=== PATIENT | male | born 1930 | race African-American/Black ===

== ENCOUNTER 2018-05-02 20:16 | Inpatient (IN) | payer OTHER ==
[~2018-05-02] VITALS: Ht 185.4 cm; Wt 138.1 kg
--- NOTE | ~2018-05-02 | EKG ---
[place] [address] [facility] [place] [address] ELECTROCARDIOGRAM REPORT Name: ALEXANDER WHITMAN Room #: 360-P ADM IN M.R.#: [id number] Admission: 05/02/18 Attend Phys: Radha Lacy MD Discharge: Date of : 32 Report #: [id number] THIS REPORT FOR: //name// [facility] ED Test Date: 2018-05-02 Test Time: 20:29:27 Pat Name: ALEXANDER WHITMAN Department: Room: Gender: M Cook Jelly: LOI : 1930 Requested By: Janice Estrada Order Number: [id number] MD: Jori Garcia Measurements Intervals [place] Rate: 75 P: SC: QRS: -40 QRSD: 112 T: 119 QT: 447 QTc: 500 Interpretive Statements Atrial fibrillation Ventricular premature complex Abnormal R-wave progression, early transition Nonspecific T abnrm Borderline prolonged QT interval No previous ECG available for comparison Electronically Signed On 05-03-2018 8:12:46 CDT by Jori Garcia [email or web address] <ELECTRONICALLY SIGNED> By: Jori Garcia MD, [facility] 05/03/18 0812 28 28 Jori Garcia MD, [facility] /EPI
--- NOTE | ~2018-05-02 | HC ---
[facility] [address] [place] [address] CONSULTATION Name: ALEXANDER WHITMAN Room #: 360-P ADM IN M.R.#: [id number] Admission: 05/02/18 Attend Phys: Radha Lacy MD Discharge: Date of : 32 Report #: [id number] THIS REPORT FOR: //name// CC: Radha Lacy REASON FOR CONSULTATION: Hypercalcemia. REASON FOR PRESENTATION: Abnormal lab. HISTORY OF PRESENT ILLNESS: An 88-year-old with past medical history of hypertension, AFib, status post pacemaker insertion. He was in [facility] after a fracture of C2. This was nondisplaced fracture, he was treated accordingly. He was then transferred to the [facility]. There, he had some issues with subjective high temperature and episodes of emesis. Labs were obtained on the patient and this revealed hypercalcemia and leukocytosis. He was transferred to further evaluate of those things. It is mentioned in one of his diagnoses that he has history of hyperparathyroidism and was maintained on Sensipar for unclear reasons to me. Calcium on presentation was elevated at 12.5, The patient currently is not able to provide me with the details of his hospital stay at [facility]. It does look like that he carries a diagnosis of chronic kidney disease. He has issues with fluid overload and diastolic heart failure. He also has an indwelling G[place] catheter because of prostate related issues as per his . He is not aware of any previous calcium issues as he stated; however, his tells me that this has been worked up extensively at the [facility]. UA was significant for nitrites and some bacteria and white blood cells. Cultures are still pending. When he presented to the emergency room yesterday, white blood cell count was elevated at 15.7 He does have anemia. Creatinine from yesterday was elevated at 2.1. No previous values. No ultrasound is available. PAST MEDICAL HISTORY: 1. Hypertension. 2. AFib. 3. Status post pacemaker insertion. 4. Recent cervical C2 fracture. 5. Syncope. 6. Diastolic heart failure. 7. Questionable history of hyperparathyroidism. MEDICATIONS: alf facility medications included the followin. Pradaxa. 2. Potassium. 3. Cinacalcet. 4. Lasix. SOCIAL HISTORY: He resides in the [facility]. No drug or alcohol abuse. [address] [address] CONSULTATION Name: ALEXANDER WHITMAN Room #: 360-P [facility] IN ..#: [id number] Admission: 05/02/18 Attend Phys: Radha Lacy MD Discharge: Date of : 32 Report #: [id number] REVIEW OF SYSTEMS: Per the . GENERAL: Significant for weakness and repeated falls. CARDIOVASCULAR: Syncope. PULMONARY: No cough or hemoptysis. GASTROINTESTINAL: Decreased p.o. intake. GENITOURINARY: No frequency, no urgency. He has an indwelling catheter. MUSCULOSKELETAL: As per the history of present illness. NEUROLOGICAL: Significant for syncope. PHYSICAL EXAMINATION: GENERAL: Currently wearing a cervical collar. VITAL SIGNS: Blood pressure is 152/77, pulse is 69, and temperature is 37.1. HEAD AND NECK: Cervical collar in place. CHEST: No crackles. CARDIOVASCULAR: Regular with no rub. ABDOMEN: Soft, nontender. LOWER EXTREMITIES: +3 edema. LABORATORY VALUES: Reviewed. White blood cell count is 15.7, hemoglobin is 9.5. Sodium is 146, BUN is 56, creatinine is 2.1. Lactic acid is 2.1. Calcium is 12.6, magnesium is 3. AST is mildly elevated. Albumin is low at 2.4. There is no protein in the urine. ASSESSMENT, IMPRESSION, AND PLAN: 1. Hypercalcemia. 2. Elevated creatinine. 3. Heart failure. 4. Edema. 5. Recent C2 fracture. 6. Atrial fibrillation, status post pacemaker insertion. 7. We will initiate the workup for his hypercalcemia. I do not usually tend to treat hypercalcemia with Sensipar except in dialysis people. We will hold on Sensipar. 8. Continue with gentle hydration. 9. Lasix is to be continued to help with the hypercalcemia. 10. Obtain his medical records from [facility]. 11. Multiple myeloma workup. 12. Strict input and output. 13. Evaluate his parathyroid hormone and vitamin D. 14. We will continue to follow along. <ELECTRONICALLY SIGNED> By: Elia Matias MD 05/03/18 0939 [id number] [id number] Elia Matias MD /nt
[2018-05-02 20:17] VITALS: BP 140/80
[2018-05-02 20:45] LABS: ABSOLUTE NEUTROPHILS 12.1 thou/uL (1.4-8.2); BASOPHILS 0.4 % (0.0-2.0); HEMATOCRIT 28.9 % (42.0-52.0); HEMOGLOBIN 9.5 gm/dL (14.0-18.0); LYMPHOCYTES 9.5 % (24.0-44.0); MCH 32.1 pg (26.0-34.0); MCHC 32.7 g/dL (28.0-37.0); MCV 98.1 fL (80.0-100.0); MONOCYTES 11.6 % (1.0-8.0); PLATELET COUNT 458 thou/uL (150-400); POLYS 77.5 % (36.0-66.0); RBC 2.95 mil/uL (4.50-6.00); RDW 14.9 % (10.5-14.5); WBC 15.7 thou/uL (4.0-11.0)
[2018-05-02 20:53] LABS: CREATININE 2.1 mg/dL (0.7-1.3); POTASSIUM 4.2 mmol/L (3.5-5.1)
[2018-05-02 20:53] LABS: URINE BILIRUBIN NEGATIVE (Negative); URINE BLOOD NEGATIVE (Negative); URINE CLARITY CLEAR; URINE COLOR YELLOW; URINE GLUCOSE-RANDOM* NEGATIVE (Negative); URINE KETONES NEGATIVE (Negative); URINE LEUKOCYTES-REFLEX NEGATIVE (Negative); URINE NITRITE-REFLEX POSITIVE (Negative); URINE PROTEIN (DIPSTICK) NEGATIVE (Negative); URINE UROBILINOGEN 0.2 E.U./dl (0.2-1.0)
[2018-05-02 20:56] LABS: CALCIUM 12.6 mg/dL (8.5-10.1)
[2018-05-02 20:59] LABS: ALBUMIN 2.4 g/dL (3.4-5.0); TOTAL BILIRUBIN 0.4 mg/dL (<0.1-1.0); TOTAL PROTEIN 7.9 g/dL (6.4-8.2)
[2018-05-02 21:03] LABS: SQUAMOUS None Seen /LPF (0-3)
[2018-05-02 21:04] LABS: AMORPHOUS PHOSPHATES Many /LPF (None Seen); CALCIUM OXALATE 0-3 Few /LPF (None Seen); COARSE GRANULAR CASTS 4-10 Moderate /LPF (None Seen); FINE GRANULAR CASTS 0-3 Few /LPF (None Seen); HYALINE CASTS >10 Many /LPF (None Seen); URINE RBC 0-2 Rare /HPF (0-2); URINE WBC-REFLEX 0-5 Rare /HPF (0-5)
[2018-05-02 23:40] VITALS: BP 88/46
[2018-05-02 23:57] VITALS: BP 122/77
[2018-05-03 00:15] VITALS: BP 137/64
[2018-05-03 03:19] VITALS: BP 133/65
[2018-05-03] MEDS ORDERED: PRADAXA150 MG PO (06:43)
[2018-05-03] MEDS ORDERED: LASIX 80 MG TAB80 MG PO (06:44)
[2018-05-03] MEDS ORDERED: KLOR-CON 1010 MEQ PO (06:45)
[2018-05-03] MEDS ORDERED: TYLENOL325 MG PO (06:46)
[2018-05-03] MEDS ORDERED: SSD CREAM 1% 5050 GM TOP (06:47)
[2018-05-03] MEDS ORDERED: SENSIPAR 30 MG30 M1 PO (06:47)
[2018-05-03] MEDS ORDERED: ONDANSETRON HCL4 M2 PO (06:49)
[2018-05-03 07:15] VITALS: BP 152/77
[2018-05-03 11:02] LABS: CREATININE 1.8 mg/dL (0.7-1.3); PHOSPHORUS 3.4 mg/dL (2.5-4.9)
[2018-05-03 11:05] LABS: CALCIUM 13.6 mg/dL (8.5-10.1)
[2018-05-03 11:13] VITALS: BP 111/63
[2018-05-03 15:15] VITALS: BP 123/56
[2018-05-03 19:46] VITALS: BP 133/54
[2018-05-04 05:02] VITALS: BP 122/61
[2018-05-04 05:57] LABS: CREATININE 1.7 mg/dL (0.7-1.3); PHOSPHORUS 2.8 mg/dL (2.5-4.9); POTASSIUM 3.9 mmol/L (3.5-5.1)
[2018-05-04 06:02] LABS: CALCIUM 12.1 mg/dL (8.5-10.1)
[2018-05-04 06:08] LABS: 25-HYDROXY TOTAL 43.5 ng/mL (30.0-100.0); IgA 724 mg/dL (61-437); IgG 1473 mg/dL (700-1600); IgM 65 mg/dL (15-143)
[2018-05-04 07:35] VITALS: BP 144/73
[2018-05-04 11:17] VITALS: BP 155/79
[2018-05-04 15:26] VITALS: BP 145/61
[2018-05-04 19:46] VITALS: BP 152/47
[2018-05-05 03:49] VITALS: BP 116/57
[2018-05-05 06:02] LABS: ALBUMIN 2.1 g/dL (3.4-5.0); CALCIUM 11.7 mg/dL (8.5-10.1); CREATININE 1.6 mg/dL (0.7-1.3); PHOSPHORUS 2.4 mg/dL (2.5-4.9); POTASSIUM 3.6 mmol/L (3.5-5.1)
[2018-05-05 07:48] VITALS: BP 129/75
[2018-05-05 15:06] LABS: KAPPA FREE LIGHT CHAINS 132.6 mg/L (3.3-19.4); KAPPA/LAMBDA RATIO 1.86 (0.26-1.65); LAMBDA FREE LIGHT CHAINS 71.3 mg/L (5.7-26.3)
[2018-05-05 20:05] VITALS: BP 132/69
[2018-05-06 04:45] VITALS: BP 144/58; BP 95/54
[2018-05-06 05:37] LABS: CREATININE 1.6 mg/dL (0.7-1.3); PHOSPHORUS 2.5 mg/dL (2.5-4.9); POTASSIUM 3.7 mmol/L (3.5-5.1)
[2018-05-06 08:15] VITALS: BP 126/65
[2018-05-06] MEDS ORDERED: LASIX 40 MG TAB40 M1 PO (10:15)
[2018-05-06 11:45] VITALS: BP 132/76
[2018-05-06 16:42] VITALS: BP 142/64
[2018-05-06 19:07] LABS: GLOBULIN TOTAL 4.4 g/dL (2.2-3.9); M-SPIKE Not Observed g/dL (Not Observed)
[2018-05-06 20:45] VITALS: BP 135/63
[2018-05-07 03:15] VITALS: BP 117/68
[2018-05-07 04:07] LABS: ALBUMIN 2.1 g/dL (3.4-5.0); CALCIUM 10.7 mg/dL (8.5-10.1); CREATININE 1.5 mg/dL (0.7-1.3); PHOSPHORUS 2.2 mg/dL (2.5-4.9); POTASSIUM 3.7 mmol/L (3.5-5.1)
[2018-05-07 08:04] VITALS: BP 122/66
[2018-05-07 11:18] VITALS: BP 127/71
[2018-05-07 15:24] VITALS: BP 138/71
[2018-05-07 20:10] VITALS: BP 145/76
[2018-05-08 05:45] VITALS: BP 138/71
[2018-05-08 07:49] VITALS: BP 120/68
[2018-05-08 12:29] VITALS: BP 142/73
[2018-05-08 15:35] VITALS: BP 145/63
[2018-05-08 20:00] VITALS: BP 142/60
[2018-05-09 03:30] VITALS: BP 124/55
[2018-05-09 05:43] LABS: HEMATOCRIT 24.1 % (42.0-52.0); HEMOGLOBIN 7.9 gm/dL (14.0-18.0); MCHC 32.7 g/dL (28.0-37.0); RBC 2.46 mil/uL (4.50-6.00); WBC 10.8 thou/uL (4.0-11.0)
[2018-05-09 06:20] LABS: CALCIUM 10.2 mg/dL (8.5-10.1); CREATININE 1.5 mg/dL (0.7-1.3)
== END 2018-05-09 19:59 | DRG 872 ==
LOC: ER 20:16 → 3W 21:19 → EROBS 21:19 → 3W 05-03 00:12
PROVIDERS: Hospitalist; Internal Medicine; Nurse Practitioner Family
DX: A41.9 Sepsis, unspecified organism (principal); N39.0 Urinary tract infection, site not specified; I50.32 Chronic diastolic (congestive) heart failure; N17.9 Acute kidney failure, unspecified; C90.00 Multiple myeloma not having achieved remission; Z68.41 Body mass index [BMI] 40.0-44.9, adult; I13.0 Hypertensive heart and chronic kidney disease with heart failure and stage 1 through stage 4 chronic kidney disease, or unspecified chronic kidney disease; E83.52 Hypercalcemia; I48.91 Unspecified atrial fibrillation; E86.9 Volume depletion, unspecified; G47.33 Obstructive sleep apnea (adult) (pediatric); M17.0 Bilateral primary osteoarthritis of knee; E66.01 Morbid (severe) obesity due to excess calories; N18.9 Chronic kidney disease, unspecified; Z95.0 Presence of cardiac pacemaker; Z88.6 Allergy status to analgesic agent; Z88.8 Allergy status to other drugs, medicaments and biological substances; Z87.81 Personal history of (healed) traumatic fracture
CPT/HCPCS: 10879